=== PATIENT | female | born 1990 | race African-American/Black ===

== ENCOUNTER 2019-03-16 13:27 | Outpatient (CLI) | payer BC ==
[2019-03-16] MEDS ORDERED: LACTATED RINGER'S 500 ML IV (15:00)
[2019-03-16] MEDS ORDERED: LACTATED RINGER'S 1,000 ML IV (15:00)
[2019-03-16 15:20] LABS: ADD UMIC NO; UR ASCORBIC ACID NEGATIVE (NEGATIVE); UR BILIRUBIN (Dip) NEGATIVE (NEGATIVE); UR BLOOD (Dip) NEGATIVE (NEGATIVE); UR CLARITY CLEAR (CLEAR); UR COLOR YELLOW (YELLOW); UR GLUCOSE (Dip) NEGATIVE (NEGATIVE); UR KETONES (Dip) 1+ mg/dL (NEGATIVE); UR LEUKOCYTE ESTERASE (Dip) NEGATIVE Leu/ul (NEGATIVE); UR NITRITE (Dip) NEGATIVE (NEGATIVE); UR SPECIFIC GRAVITY (Dip) 1.017 (1.003-1.030); UR TOTAL PROTEIN (Dip) NEGATIVE (NEGATIVE); UR UROBILINOGEN (Dip) NEGATIVE (NEGATIVE)
[2019-03-16 15:43] LABS: AMPHETAMINE/METHAMPHETAMINE Negative (NEGATIVE); BARBITURATES Negative (NEGATIVE); BENZODIAZEPINES Negative (NEGATIVE); CANNABINOIDS Negative (NEGATIVE); COCAINE Negative (NEGATIVE); OPIATES Negative (NEGATIVE)
== END 2019-03-16 16:30 | disposition home or self-care (01) ==
LOC: OBT 13:27 → L-D 13:28 → OBT 16:30
DX: O62.9 Abnormality of forces of labor, unspecified (principal); Z3A.38 38 weeks gestation of pregnancy
CPT/HCPCS: 76815; 76818; 80307; 81003

== ENCOUNTER 2019-03-23 06:30 | Outpatient (CLI) | payer BC ==
[2019-03-23] MEDS ORDERED: LACTATED RINGER'S 1,000 ML IV (07:11)
[2019-03-23] MEDS ORDERED: OXYTOCIN 30 UNITS/LR 500 ML IV ×3 (07:30)
[2019-03-23] MEDS ORDERED: CARBOPROST 250 MCG INJ IM (07:30)
[2019-03-23] MEDS ORDERED: IBUPROFEN 600 MG TAB PO (07:30)
[2019-03-23] MEDS ORDERED: BUTORPHANOL 2 MG INJ IV (07:30)
[2019-03-23] MEDS ORDERED: LIDOCAINE 1% (MPF) 30 ML INJ INJ (07:30)
[2019-03-23] MEDS ORDERED: MISOPROSTOL 200 MCG TAB PR (07:30)
[2019-03-23] MEDS ORDERED: METHYLERGONOVINE 0.2 MG INJ IM (07:30)
[2019-03-23] MEDS ORDERED: AMPICILLIN 2 GM/NS (PMX) 100 ML IV (07:30)
[2019-03-23 09:29] LABS: ADD MAN DIFF? NO
[2019-03-23 09:30] LABS: BASOPHILS % 0.3 % (0.0-2.0); EOSINOPHILS # 0.2 10^3/ul (0.0-0.5); EOSINOPHILS % 2.7 % (0.0-7.0); HEMATOCRIT 37.6 % (37.0-47.0); HEMOGLOBIN 12.3 g/dl (12.0-16.0); LYMPHOCYTES # 2.5 10^3/ul (0.8-2.9); LYMPHOCYTES % 39.4 % (15.0-51.0); MEAN CORPUSCULAR HEMOGLOBIN 31.3 pg (29.0-33.0); MEAN CORPUSCULAR HGB CONC 32.7 g/dl (32.0-37.0); MEAN CORPUSCULAR VOLUME 95.7 fl (82.0-101.0); MEAN PLATELET VOLUME 10.7 fl (7.4-10.4); MONOCYTE # 0.7 10^3/ul (0.3-0.9); MONOCYTES % 10.4 % (0.0-11.0); NEUTROPHILS % 46.6 % (39.0-77.0); PLATELET COUNT 201 10^3/UL (140-415); RED BLOOD COUNT 3.93 10^6/ul (4.20-5.40); RED CELL DISTRIBUTION WIDTH 12.6 % (11.5-14.5)
[2019-03-23 09:30] LABS: WHITE BLOOD COUNT 6.4 10^3/ul (4.8-10.8)
[2019-03-23 09:49] LABS: INR 0.97
[2019-03-23 09:50] LABS: PARTIAL THROMBOPLASTIN TIME 29.1 Sec (23.0-35.0)
[2019-03-23 10:23] LABS: HEPATITIS B SURFACE ANTIGEN NEGATIVE (NEGATIVE)
[2019-03-23] MEDS ORDERED: AMPICILLIN 1 GM/NS (PMX) 50 ML IV (11:30)
[2019-03-23 18:55] LABS: RAPID PLASMA REAGIN NONREACTIVE (NR)
== END 2019-03-23 09:13 | disposition home or self-care (01) ==
LOC: L-D 06:30 → OBT 09:12
DX: O60.03 Preterm labor without delivery, third trimester (principal); Z3A.39 39 weeks gestation of pregnancy
CPT/HCPCS: 76815; 76818; 85025; 85610; 85730; 86592; 86850; 86900; 86901; 87340

== ENCOUNTER 2019-03-26 07:00 | Inpatient (IN) | payer BC ==
[2019-03-26] MEDS ORDERED: LACTATED RINGER'S 1,000 ML IV (09:50)
[2019-03-26] MEDS ORDERED: CARBOPROST 250 MCG INJ IM (10:00)
[2019-03-26] MEDS ORDERED: OXYTOCIN 30 UNITS/LR 500 ML IV ×2 (10:00)
[2019-03-26] MEDS ORDERED: IBUPROFEN 600 MG TAB PO (10:00)
[2019-03-26] MEDS ORDERED: BUTORPHANOL 2 MG INJ IV (10:00)
[2019-03-26] MEDS ORDERED: METHYLERGONOVINE 0.2 MG INJ IM (10:00)
[2019-03-26] MEDS ORDERED: MISOPROSTOL 200 MCG TAB PR (10:00)
[2019-03-26] MEDS ORDERED: LIDOCAINE 1% (MPF) 30 ML INJ INJ (10:00)
[2019-03-26] MEDS: MISOPROSTOL 50 MCG CAPSULE PO ×4 (11:52→23:37)
[2019-03-26] MEDS: LACTATED RINGER'S 1,000 ML IV ×2 (12:31→14:01)
[2019-03-26 12:44] LABS: ADD MAN DIFF? NO
[2019-03-26 12:47] LABS: WHITE BLOOD COUNT 6.5 10^3/ul (4.8-10.8)
[2019-03-26 12:47] LABS: BASOPHILS % 0.3 % (0.0-2.0); EOSINOPHILS # 0.1 10^3/ul (0.0-0.5); EOSINOPHILS % 1.7 % (0.0-7.0); HEMATOCRIT 39.8 % (37.0-47.0); HEMOGLOBIN 12.7 g/dl (12.0-16.0); LYMPHOCYTES # 2.1 10^3/ul (0.8-2.9); LYMPHOCYTES % 31.7 % (15.0-51.0); MEAN CORPUSCULAR HEMOGLOBIN 30.5 pg (29.0-33.0); MEAN CORPUSCULAR HGB CONC 31.9 g/dl (32.0-37.0); MEAN CORPUSCULAR VOLUME 95.4 fl (82.0-101.0); MEAN PLATELET VOLUME 10.1 fl (7.4-10.4); MONOCYTE # 0.7 10^3/ul (0.3-0.9); NEUTROPHIL # 3.6 10^3/ul (1.6-7.5); NEUTROPHILS % 54.5 % (39.0-77.0); PLATELET COUNT 168 10^3/UL (140-415); RED BLOOD COUNT 4.17 10^6/ul (4.20-5.40); RED CELL DISTRIBUTION WIDTH 12.8 % (11.5-14.5)
[2019-03-26] MEDS ORDERED: MISOPROSTOL 50 MCG CAPSULE PO (13:00)
[2019-03-26 13:07] LABS: PROTIME 13.3 Sec (11.9-14.9)
[2019-03-26 13:08] LABS: PARTIAL THROMBOPLASTIN TIME 25.7 Sec (23.0-35.0)
[2019-03-26 13:36] LABS: HEPATITIS B SURFACE ANTIGEN NEGATIVE (NEGATIVE)
[2019-03-26 16:15] LABS: RAPID PLASMA REAGIN NONREACTIVE (NR)
[2019-03-27] MEDS: MISOPROSTOL 50 MCG CAPSULE PO ×3 (01:00→09:00)
[2019-03-27] MEDS: LACTATED RINGER'S 1,000 ML IV ×3 (02:04→15:27)
[2019-03-27] MEDS ORDERED: OXYTOCIN 30 UNITS/LR 500 ML IV ×3 (13:00→21:30)
[2019-03-27] MEDS: OXYTOCIN 30 UNITS/LR 500 ML IV ×2 (13:37→22:00)
[2019-03-27] MEDS ORDERED: CEFAZOLIN 2 GM/50 ML (PMX) 50 ML IVPB (16:00)
[2019-03-27] MEDS ORDERED: FENTAnyl 50 MCG/ML VIAL (19:04)
[2019-03-27] MEDS ORDERED: morphine SULFATE/PF (10 MG/10 ML) INJ (19:05)
[2019-03-27] MEDS ORDERED: ONDANSETRON 4 MG INJ (19:21)
[2019-03-27] MEDS ORDERED: DEXAMETHASONE 4 MG/ML 1 ML INJ (19:21)
[2019-03-27] MEDS ORDERED: METHYLERGONOVINE 0.2 MG TAB PO (21:30)
[2019-03-27] MEDS ORDERED: CARBOPROST 250 MCG INJ IM (21:30)
[2019-03-27] MEDS ORDERED: LANOLIN HPA 1 PKT TOP (21:30)
[2019-03-27] MEDS ORDERED: METHYLERGONOVINE 0.2 MG INJ IM (21:30)
[2019-03-27] MEDS ORDERED: MISOPROSTOL 200 MCG TAB PR (21:30)
[2019-03-27] MEDS ORDERED: KETOROLAC 30 MG INJ (22:06)
[2019-03-27] MEDS: KETOROLAC 30 MG INJ IM (22:20)
[2019-03-28] MEDS ORDERED: NALOXONE (0.4 MG/ML) INJ IV (01:00)
[2019-03-28] MEDS ORDERED: ONDANSETRON 4 MG INJ IV (01:00)
[2019-03-28] MEDS ORDERED: ZOLPIDEM 5 MG TAB PO (01:00)
[2019-03-28] MEDS ORDERED: HYDROmorphONE 0.5 MG/0.5 ML SYG IV (01:00)
[2019-03-28] MEDS ORDERED: DIPHENHYDRAMINE 50 MG INJ IV (01:00)
[2019-03-28] MEDS: HYDROmorphONE 0.5 MG/0.5 ML SYG IV (01:12)
[2019-03-28] MEDS: LACTATED RINGER'S 1,000 ML IV ×4 (01:15→17:36)
[2019-03-28] MEDS: MINERAL OIL LIGHT 10 ML VIAL TOP (07:57)
[2019-03-28] MEDS: MISOPROSTOL 50 MCG CAPSULE PO ×4 (07:58→07:59)
[2019-03-28 08:40] LABS: ADD MAN DIFF? NO
[2019-03-28 08:47] LABS: BASOPHILS % 0.1 % (0.0-2.0); HEMATOCRIT 29.7 % (37.0-47.0); HEMOGLOBIN 10.1 g/dl (12.0-16.0); LYMPHOCYTES # 1.8 10^3/ul (0.8-2.9); LYMPHOCYTES % 12.6 % (15.0-51.0); MEAN CORPUSCULAR HEMOGLOBIN 32.4 pg (29.0-33.0); MEAN CORPUSCULAR VOLUME 95.2 fl (82.0-101.0); MEAN PLATELET VOLUME 10.5 fl (7.4-10.4); MONOCYTE # 1.2 10^3/ul (0.3-0.9); MONOCYTES % 8.3 % (0.0-11.0); NEUTROPHILS % 78.4 % (39.0-77.0); PLATELET COUNT 188 10^3/UL (140-415); RED BLOOD COUNT 3.12 10^6/ul (4.20-5.40); RED CELL DISTRIBUTION WIDTH 12.4 % (11.5-14.5)
[2019-03-28 08:47] LABS: WHITE BLOOD COUNT 14.1 10^3/ul (4.8-10.8)
[2019-03-28] MEDS: SENNA/DOCUSATE NA (8.6MG/50MG) TAB PO ×2 (08:53→22:00)
[2019-03-28] MEDS: KETOROLAC 30 MG INJ IV ×2 (08:54→17:36)
[2019-03-28 09:01] LABS: ANION GAP 6 (5-13); BLOOD UREA NITROGEN 5 mg/dl (7-20); CALCIUM 8.9 mg/dl (8.4-10.2); CARBON DIOXIDE 21 mmol/L (21-31); CHLORIDE 106 mmol/L (97-110); CREATININE 0.66 mg/dl (0.44-1.00); Estimated GFR > 60 mL/min (>60); GLUCOSE 66 mg/dl (70-220); SODIUM 133 mmol/L (135-144)
[2019-03-29] MEDS: LACTATED RINGER'S 1,000 ML IV (01:50)
[2019-03-29] MEDS: IBUPROFEN 800 MG TAB PO ×3 (06:19→21:58)
[2019-03-29] MEDS: SENNA/DOCUSATE NA (8.6MG/50MG) TAB PO ×2 (11:01→21:59)
[2019-03-29] MEDS: MAGNESIUM HYDROXIDE 30ML CUP PO ×2 (11:01→21:59)
[2019-03-29] MEDS: HYDROCODONE/APAP (5/325) TAB PO ×2 (11:02→16:30)
[2019-03-29] MEDS: BISACODYL 10 MG SUPP PR (16:01)
[2019-03-30] MEDS: BISACODYL 10 MG SUPP PR ×2 (04:14→14:54)
[2019-03-30] MEDS: HYDROCODONE/APAP (5/325) TAB PO ×2 (04:14→13:18)
[2019-03-30 06:55] LABS: ADD MAN DIFF? NO
[2019-03-30 07:05] LABS: BASOPHILS % 0.4 % (0.0-2.0); EOSINOPHILS # 0.3 10^3/ul (0.0-0.5); EOSINOPHILS % 3.8 % (0.0-7.0); HEMATOCRIT 30.3 % (37.0-47.0); LYMPHOCYTES # 2.7 10^3/ul (0.8-2.9); LYMPHOCYTES % 32.6 % (15.0-51.0); MEAN CORPUSCULAR HEMOGLOBIN 31.4 pg (29.0-33.0); MEAN CORPUSCULAR VOLUME 95.3 fl (82.0-101.0); MEAN PLATELET VOLUME 9.8 fl (7.4-10.4); MONOCYTES % 12.4 % (0.0-11.0); NEUTROPHIL # 4.1 10^3/ul (1.6-7.5); NEUTROPHILS % 50.4 % (39.0-77.0); PLATELET COUNT 183 10^3/UL (140-415); RED BLOOD COUNT 3.18 10^6/ul (4.20-5.40); RED CELL DISTRIBUTION WIDTH 12.5 % (11.5-14.5)
[2019-03-30 07:05] LABS: WHITE BLOOD COUNT 8.2 10^3/ul (4.8-10.8)
[2019-03-30] MEDS: MEASLES,MUMPS,RUBELLA VACCINE INJ SC* (07:53)
[2019-03-30] MEDS: SENNA/DOCUSATE NA (8.6MG/50MG) TAB PO (13:05)
[2019-03-30] MEDS: DIPHTH/TET/ACEL PERTUSS (ADULT) 0.5 ML VIAL IM* (13:07)
[2019-03-30] MEDS: MAGNESIUM HYDROXIDE 30ML CUP PO (14:19)
== END 2019-03-30 17:09 | disposition home or self-care (01) | DRG 788 ==
LOC: L-D 07:00 → PP1 03-27 22:45
PROVIDERS: Obstetrics & Gynecology
PROC: 10D00Z1 Extraction of Products of Conception, Low, Open Approach (ICD-10-PCS; principal; 2019-03-28)
PROC: 3E033VJ Introduction of Other Hormone into Peripheral Vein, Percutaneous Approach (ICD-10-PCS; 2019-03-28)
DX: O36.5930 Maternal care for other known or suspected poor fetal growth, third trimester, not applicable or unspecified (principal); O62.0 Primary inadequate contractions; Z3A.39 39 weeks gestation of pregnancy; Z37.0 Single live birth
CPT/HCPCS: 76818; 80048; 85025; 85610; 85730; 86592; 86850; 86900; 86901; 87340; 90715; 99464